=== PATIENT | female | born 1990 | race African-American/Black ===

== ENCOUNTER 2017-07-22 10:19 | Inpatient (IN) | payer MEDICAID, OTHER ==
[~2017-07-22] VITALS: Ht 162.6 cm; Wt 110.0 kg
[2017-07-22] MEDS ORDERED: DIVA500T2 PO (10:57)
[2017-07-22] MEDS ORDERED: RISP0.253 PO (10:57)
[2017-07-22 12:03] LABS: ALBUMIN 3.4 g/dL (3.4-5.0); ANION GAP 10 mmol/L (5-15); CALCIUM 7.9 mg/dL (8.5-10.1); CHLORIDE 105 mmol/L (98-107)
[2017-07-22 12:11] LABS: ACETAMINOPHEN < 2 mcg/mL (10-30); ALANINE AMINOTRANSFERASE 21 U/L (12-78); ALKALINE PHOSPHATASE 66 U/L (45-117); BILIRUBIN,TOTAL 0.3 mg/dL (0.2-1.0); CREATININE 0.73 mg/dL (0.55-1.02); SALICYLATE LEVEL 3.6 mg/dL (2.8-20.0); TOTAL PROTEIN 6.9 g/dL (6.4-8.2)
[2017-07-22] MEDS ORDERED: ZIPRASIDONE 20 MG INJ IM ONE ×2 (13:25→13:30)
[2017-07-22 14:28] LABS: AMPHETAMINE SCREEN, URINE Negative (Negative); BARBITURATE SCREEN, URINE Negative (Negative); BENZODIAZEPINE SCREEN, URINE Negative (Negative); CANNABINOID SCREEN, URINE Positive (Negative); COCAINE SCREEN, URINE Negative (Negative); METHADONE SCREEN, URINE Negative (Negative); OPIATE SCREEN, URINE Negative (Negative)
[2017-07-22 14:37] LABS: BASOPHILS # (AUTO) 0.04 x10^3/uL (0-0.1); BASOPHILS % (AUTO) 1 % (0-1); EOSINOPHILS % (AUTO) 2 % (1-7); LYMPHOCYTES # (AUTO) 2.16 x10^3/uL (1-3.4); LYMPHOCYTES % (AUTO) 36 % (22-44); MD MORPH REVIEW ONLY; MEAN CORPUSCULAR HEMOGLOBIN 26.3 pg (27.0-34.8); MEAN CORPUSCULAR HGB CONC 31.5 g/dL (32.4-35.8); MEAN CORPUSCULAR VOLUME 83.6 fL (80-100); MONOCYTES # (AUTO) 0.32 x10^3/uL (0.2-0.8); MONOCYTES % (AUTO) 5 % (2-9); NEUTROPHILS # (AUTO) 3.46 x10^3/uL (1.8-6.8); NEUTROPHILS % (AUTO) 57 % (42-75); RED BLOOD COUNT 5.18 x10^6/uL (3.82-5.3); RED CELL DISTRIBUTION WIDTH 15.8 % (9.6-15.2)
[2017-07-22 14:41] LABS: <PLATELET ESTIMATE> ADEQUATE; <PLT MORPHOLOGY> NORMAL PLT MORPH; <RBC MORPHOLOGY> NORMAL
[2017-07-22] MEDS ORDERED: ONDANSETRON ODT 4 MG PO PRN (15:30)
[2017-07-22] MEDS ORDERED: DOCUSATE 100 MG CAPSULE PO PRN (15:30)
[2017-07-22] MEDS: DIVALPROEX 500 MG TABLET.DR PO SCH ×2 (18:11→20:54)
[2017-07-22 20:01] LABS: MICROSCOPIC NOT IND
[2017-07-22 20:10] LABS: CULTURE INDICATED? NO
[2017-07-22] MEDS: RISPERIDONE 0.5 MG TABLET PO SCH (21:19)
[2017-07-22 21:58] VITALS: BP 138/94
[2017-07-23] MEDS: ZIPRASIDONE 20 MG INJ IM PRN ×2 (05:48→15:34)
[2017-07-23 05:51] LABS: CHLORIDE 106 mmol/L (98-107)
[2017-07-23 05:53] LABS: BASOPHILS # (AUTO) 0.03 x10^3/uL (0-0.1); BASOPHILS % (AUTO) 0 % (0-1); EOSINOPHILS # (AUTO) 0.09 x10^3/uL (0-0.4); EOSINOPHILS % (AUTO) 1 % (1-7); LYMPHOCYTES # (AUTO) 2.21 x10^3/uL (1-3.4); LYMPHOCYTES % (AUTO) 33 % (22-44); MD NO; MEAN CORPUSCULAR HGB CONC 33.2 g/dL (32.4-35.8); MEAN CORPUSCULAR VOLUME 84.3 fL (80-100); MEAN PLATELET VOLUME 10.2 fL (7.4-10.4); MONOCYTES # (AUTO) 0.35 x10^3/uL (0.2-0.8); MONOCYTES % (AUTO) 5 % (2-9); NEUTROPHILS # (AUTO) 4.11 x10^3/uL (1.8-6.8); NEUTROPHILS % (AUTO) 61 % (42-75); PLATELET COUNT 201 x10^3/uL (130-400); RED BLOOD COUNT 5.24 x10^6/uL (3.82-5.3); RED CELL DISTRIBUTION WIDTH 16.1 % (9.6-15.2)
[2017-07-23 06:15] LABS: ALANINE AMINOTRANSFERASE 18 U/L (12-78); ALBUMIN 3.3 g/dL (3.4-5.0); ALKALINE PHOSPHATASE 62 U/L (45-117); ANION GAP 7 mmol/L (5-15); BILIRUBIN,TOTAL 0.5 mg/dL (0.2-1.0); CALCIUM 9.1 mg/dL (8.5-10.1); FREE T4 (FREE THYROXINE) 1.08 ng/dL (0.76-1.46); TOTAL PROTEIN 7.5 g/dL (6.4-8.2)
[2017-07-23 08:39] VITALS: BP 140/97
[2017-07-23] MEDS: DIVALPROEX 500 MG TABLET.DR PO SCH ×3 (08:42→20:39)
[2017-07-23] MEDS: RISPERIDONE 0.5 MG TABLET PO SCH ×2 (08:42→20:39)
[2017-07-23] MEDS: HALOPERIDOL 1 MG TABLET PO PRN (08:42)
[2017-07-23 20:09] VITALS: BP 120/75
[2017-07-23] MEDS ORDERED: ZIPRASIDONE 20 MG INJ IM ONE (22:00)
[2017-07-24 02:50] VITALS: BP 143/99
[2017-07-24] MEDS ORDERED: LORazepam 1MG TABLET PO ONE (03:00)
[2017-07-24 08:03] VITALS: BP 130/89
[2017-07-24] MEDS: RISPERIDONE 0.5 MG TABLET PO SCH ×2 (08:34→20:52)
[2017-07-24] MEDS: HALOPERIDOL 1 MG TABLET PO PRN ×2 (08:34→14:12)
[2017-07-24] MEDS: DIVALPROEX 500 MG TABLET.DR PO SCH ×3 (08:35→20:51)
[2017-07-24 14:13] VITALS: BP 125/86
[2017-07-24] MEDS ORDERED: NICOTINE GUM 2 MG BC ONE (14:28)
[2017-07-24] MEDS: NICOTINE GUM 2 MG BC PRN ×2 (14:29→18:10)
[2017-07-24 20:35] VITALS: BP 139/95
[2017-07-24] MEDS ORDERED: TRAZODONE 100MG TABLET ONE (23:16)
[2017-07-24] MEDS ORDERED: TRAZODONE 100MG TABLET PO ONE (23:30)
[2017-07-25] MEDS: NICOTINE GUM 2 MG BC PRN ×2 (00:12→18:24)
[2017-07-25] MEDS: ZIPRASIDONE 20 MG INJ IM PRN ×2 (00:40→15:13)
[2017-07-25 05:20] VITALS: BP 126/89
[2017-07-25] MEDS ORDERED: ZIPRASIDONE 20MG CAPSULE PO ONE (05:30)
[2017-07-25] MEDS: ACETAMINOPHEN 325 MG TABLET PO PRN ×3 (05:54→17:36)
[2017-07-25 07:58] VITALS: BP 119/84
[2017-07-25] MEDS: DIVALPROEX 500 MG TABLET.DR PO SCH ×3 (09:27→20:57)
[2017-07-25] MEDS: RISPERIDONE 0.5 MG TABLET PO SCH ×2 (09:28→20:57)
[2017-07-25] MEDS ORDERED: SODIUM CHLORIDE NASAL SPRAY 45ML BOTTLE NAS PRN (10:00)
[2017-07-25] MEDS: CETIRIZINE 10 MG TABLET PO SCH (10:14)
[2017-07-25] MEDS: HALOPERIDOL 1 MG TABLET PO PRN (10:15)
[2017-07-25 19:30] VITALS: BP 115/82
[2017-07-25] MEDS ORDERED: HALOPERIDOL 5 MG TABLET ONE (19:37)
[2017-07-25] MEDS ORDERED: HALOPERIDOL 5 MG TABLET PO ONE ×2 (20:00→23:00)
[2017-07-25] MEDS ORDERED: TRAZODONE 150MG TABLET PO ONE (21:00)
[2017-07-26] MEDS ORDERED: ZIPRASIDONE 20 MG INJ IM ONE (07:30)
[2017-07-26 08:01] VITALS: BP 114/82
[2017-07-26] MEDS: RISPERIDONE 0.5 MG TABLET PO SCH (09:44)
[2017-07-26] MEDS: DIVALPROEX 500 MG TABLET.DR PO SCH ×3 (09:44→20:35)
[2017-07-26] MEDS: CETIRIZINE 10 MG TABLET PO SCH (09:44)
[2017-07-26] MEDS: ZIPRASIDONE 20 MG INJ IM PRN (12:17)
[2017-07-26] MEDS: NICOTINE GUM 2 MG BC PRN (18:23)
[2017-07-26 19:57] VITALS: BP 121/84
[2017-07-26] MEDS: RISPERIDONE 2 MG TABLET PO SCH (20:35)
[2017-07-27] MEDS: ZIPRASIDONE 20 MG INJ IM PRN ×3 (01:41→22:07)
[2017-07-27] MEDS: HALOPERIDOL 1 MG TABLET PO PRN (05:06)
[2017-07-27] MEDS ORDERED: HALOPERIDOL 5 MG TABLET ONE (07:22)
[2017-07-27] MEDS ORDERED: HALOPERIDOL 5 MG TABLET PO PRN ×2 (07:30→08:00)
[2017-07-27 08:00] VITALS: BP 102/62
[2017-07-27] MEDS: CETIRIZINE 10 MG TABLET PO SCH (08:43)
[2017-07-27] MEDS: DIVALPROEX 500 MG TABLET.DR PO SCH ×3 (08:43→20:02)
[2017-07-27] MEDS: NICOTINE GUM 2 MG BC PRN (15:45)
[2017-07-27] MEDS: CALCIUM CARBONATE 500 MG TAB.CHEW PO PRN ×2 (16:29→21:01)
[2017-07-27] MEDS: RISPERIDONE 2 MG TABLET PO SCH (20:02)
[2017-07-27 20:22] VITALS: BP 117/78
[2017-07-28 07:40] VITALS: BP 119/86
[2017-07-28] MEDS: NICOTINE GUM 2 MG BC PRN ×2 (09:19→21:44)
[2017-07-28] MEDS: CETIRIZINE 10 MG TABLET PO SCH (09:20)
[2017-07-28] MEDS: DIVALPROEX 500 MG TABLET.DR PO SCH (09:20)
[2017-07-28] MEDS ORDERED: BENZTROPINE 1 MG/ML, 2 ML IM PRN (13:00)
[2017-07-28] MEDS ORDERED: BENZTROPINE 1 MG TABLET PO PRN (13:00)
[2017-07-28] MEDS: CALCIUM CARBONATE 500 MG TAB.CHEW PO PRN ×2 (14:48→19:47)
[2017-07-28] MEDS: ZIPRASIDONE 20 MG INJ IM PRN ×2 (15:00→23:12)
[2017-07-28 19:57] VITALS: BP 149/104
[2017-07-28] MEDS ORDERED: DIVALPROEX 500 MG TAB.ER.24H PO SCH (21:00)
[2017-07-28] MEDS ORDERED: PALIPERIDONE 6 MG TAB.ER.24 PO SCH (21:00)
[2017-07-29] MEDS: NICOTINE GUM 2 MG BC PRN (05:25)
[2017-07-29 08:42] VITALS: BP 142/104
[2017-07-29] MEDS: CETIRIZINE 10 MG TABLET PO SCH (08:57)
[2017-07-29] MEDS ORDERED: DIVA500T4 PO (14:08)
[2017-07-29] MEDS ORDERED: CALC200T24 PO (14:08)
[2017-07-29] MEDS ORDERED: PALI6TAB5 PO (14:08)
[2017-07-29] MEDS ORDERED: BENZ1TAB61 PO (14:08)
== END 2017-07-29 14:33 | DRG 885 ==
LOC: ED 14:16 → EDIP 14:47 → OBSVTOIN 14:47 → 3E 21:55
PROVIDERS: ADMIT Hospitalist; ATTEND Hospitalist
DX: F23 Brief psychotic disorder (principal); E66.01 Morbid (severe) obesity due to excess calories; R45.851 Suicidal ideations; Z68.41 Body mass index [BMI] 40.0-44.9, adult; F12.20 Cannabis dependence, uncomplicated; F17.210 Nicotine dependence, cigarettes, uncomplicated; E66.9 Obesity, unspecified; F31.9 Bipolar disorder, unspecified; M25.562 Pain in left knee; F41.9 Anxiety disorder, unspecified; J30.2 Other seasonal allergic rhinitis; Z65.3 Problems related to other legal circumstances; Z79.899 Other long term (current) drug therapy; Z81.8 Family history of other mental and behavioral disorders; Z83.3 Family history of diabetes mellitus
CPT/HCPCS: 36415; 80053; 80164; 80307; 80329; 81003; 84439; 84443; 84703; 85025; 96372; J3486; G0378; G0480

== ENCOUNTER 2019-09-04 00:43 | Emergency (ER) | payer MEDICAID, OTHER ==
[~2019-09-04] VITALS: Ht 180.3 cm; Wt 125.0 kg
[~2019-09-04 00:43] MED LIST: BENZ1TAB61 PO; CALC200T24 PO; DIVA500T2 PO; DIVA500T4 PO; PALI6TAB5 PO; RISP0.253 PO
--- NOTE | 2019-09-04 01:08 | NUR ---
FACUNDO FROM OUTSIDE [facility], FOUND TALKING TO HERSELF STATING SI BY DRIVING HER CAR INTO A BODY OF WATER TO DROWN. PT REPORTS HX OF BIPOLAR AND PTSD, STATES SHE WANTS TO KILL HERSELF, HAS FLIGHT OF IDEAS.
[2019-09-04 01:25] LABS: BASOPHILS % (AUTO) 0 % (0-1); EOSINOPHILS # (AUTO) 0.06 x10^3/uL (0-0.4); EOSINOPHILS % (AUTO) 1 % (1-7); LYMPHOCYTES # (AUTO) 2.76 x10^3/uL (1-3.4); LYMPHOCYTES % (AUTO) 30 % (22-44); MD NO; MEAN CORPUSCULAR HEMOGLOBIN 28.3 pg (27.0-34.8); MEAN PLATELET VOLUME 9.2 fL (7.4-10.4); MONOCYTES # (AUTO) 0.17 x10^3/uL (0.2-0.8); MONOCYTES % (AUTO) 2 % (2-9); NEUTROPHILS # (AUTO) 6.29 x10^3/uL (1.8-6.8); NEUTROPHILS % (AUTO) 68 % (42-75); PLATELET COUNT 267 x10^3/uL (130-400); RED BLOOD COUNT 5.34 x10^6/uL (3.82-5.3); RED CELL DISTRIBUTION WIDTH 14.9 % (9.6-15.2)
[2019-09-04] MEDS ORDERED: ZIPRASIDONE 20 MG INJ IM ONE ×5 (01:29→23:56)
[2019-09-04] MEDS ORDERED: LORazepam 1MG TABLET PO ONE ×2 (01:30→11:00)
[2019-09-04] MEDS ORDERED: LORazepam 1MG TABLET ONE ×2 (01:30→10:54)
[2019-09-04 01:37] LABS: ALBUMIN 4.1 g/dL (3.4-5.0); ANION GAP 7 mmol/L (5-15); CHLORIDE 104 mmol/L (98-107); CREATININE 1.17 mg/dL (0.55-1.02); SALICYLATE LEVEL 6.1 mg/dL (2.8-20.0)
[2019-09-04 01:39] LABS: MICROSCOPIC INDICATED
[2019-09-04 01:40] LABS: AMPHETAMINE SCREEN, URINE Negative (Negative); BARBITURATE SCREEN, URINE Negative (Negative); BENZODIAZEPINE SCREEN, URINE Negative (Negative); CANNABINOID SCREEN, URINE Positive (Negative); COCAINE SCREEN, URINE Negative (Negative); METHADONE SCREEN, URINE Negative (Negative); OPIATE SCREEN, URINE Negative (Negative)
--- NOTE | 2019-09-04 02:20 | NUR ---
SLEEPING, EVEN AND UNLABORED RESPIRATIONS, SAFETY PRECAUTIONS IN ROOM IN PLACE. SITTER AT DOORWAY FOR SAFETY WATCH.
--- NOTE | 2019-09-04 03:35 | NUR ---
PT SLEEPING ON GURNEY, EVEN AND UNLABORED RESPIRATIONS. SITTER AT DOOR.
--- NOTE | 2019-09-04 05:34 | NUR ---
PT AWAKE AGITATED AND YELLING IN ROOM, REFERRING TO HERSELF IN THIRD PERSON. SITTER AT DOORWAY FOR SAFETY MONITORING.
--- NOTE | 2019-09-04 06:51 | NUR ---
REPORT GIVEN TO LUCIEN ESCOBAR.
--- NOTE | 2019-09-04 06:51 | NUR ---
report received from turner guillaume.
--- NOTE | 2019-09-04 08:02 | NUR ---
diet tray provided at this time.
--- NOTE | 2019-09-04 08:46 | NUR ---
PT YELLING IN ROOM, REFERRING TO HERSELF IN THIRD PERSON. SITTER MONITORING FROM HALLWAY FOR SAFETY. ROOM REMAINS SECURE.
--- NOTE | 2019-09-04 08:55 | NUR ---
REPORT FROM LUCIEN ESCOBAR.
--- NOTE | 2019-09-04 09:01 | NUR ---
report given to magdaleno guillaume.
--- NOTE | 2019-09-04 09:20 | NUR ---
PT RESTING IN BED. DENIES SI AT MOMENT. ASKING FOR PHONE, EDUCATED. GIVEN WATER. STS HEARS VOICES WHEN SHE IS NOT TALKING. DENEIS COMMAND AH. DENIES VH/HI. PT SEXUALLY INAPPROPRIATE WHEN ORAL TEMPERATURE TAKEN. DENIES PHYSICAL COMPLAINTS. PHYSICAL ASSESSMENT WNL. VSS. SITTER IN PLACE. AWAITING WHISKEY PROOF READER.
--- NOTE | 2019-09-04 11:02 | NUR ---
pt getting agitated. 2 mg ativan po. given tv remote. sheets changed. given panties and pad, on period. sitter in place. as
--- NOTE | 2019-09-04 11:16 | NUR ---
rubens research neuropsychologist at bedside for eval. as
[2019-09-04] MEDS: ARIPIPRAZOLE 10 MG TABLET PO SCH (11:30)
[2019-09-04] MEDS ORDERED: TRAZODONE 50MG TABLET PO PRN (11:30)
--- NOTE | 2019-09-04 11:45 | NUR ---
pt given lunch and meds. drowsy. cooperative. as
[2019-09-04] MEDS ORDERED: ARIPIPRAZOLE 10 MG TABLET ONE (11:51)
--- NOTE | 2019-09-04 12:00 | NUR ---
PACKET FAXED TO [facility]
--- NOTE | 2019-09-04 12:52 | NUR ---
resting in care of sitter safety maintained. as
[2019-09-04] MEDS ORDERED: ONDANSETRON ODT 4 MG ONE (13:48)
--- NOTE | 2019-09-04 13:56 | NUR ---
pt dry heaving, to bathroom, no vomiting. zofran odt 4 mg per verbal order dr florian. pt asking for soda, told to wait for meds. intermittently crying loudly then laughing then watching tv calmly. as
[2019-09-04] MEDS ORDERED: ONDANSETRON ODT 4 MG PO ONE (15:00)
--- NOTE | 2019-09-04 15:00 | NUR ---
pt resting in care of sitter nad. as
--- NOTE | 2019-09-04 16:00 | NUR ---
pt resting in care of sitter nad. as
--- NOTE | 2019-09-04 16:50 | NUR ---
pt resting in care of sitter nad. as
[2019-09-04] MEDS ORDERED: hydrOXyzine 50MG TABLET ONE ×2 (17:17→23:16)
[2019-09-04] MEDS: HYDROXYZINE PAMOATE 50MG CAP PO PRN ×2 (17:22→23:19)
--- NOTE | 2019-09-04 17:23 | NUR ---
MEDS PER MAR FOR AGITATION. SITTER IN PLACE.
--- NOTE | 2019-09-04 18:47 | NUR ---
OOB TO BATHROOM GAIT STEADY. GIVEN NEW PAD/UNDERWEAR.
--- NOTE | 2019-09-04 19:00 | NUR ---
TASK RN: PT SITTING UP ON GURNEY WATCHING TV. ROOM SAFETY PRECAUTIONS IN PLACE. SITTER AT DOOR FOR SAFETY WATCH.
--- NOTE | 2019-09-04 19:52 | NUR ---
pt in bathroom for shower, cooperative. as
[2019-09-04] MEDS ORDERED: TRAZODONE 50MG TABLET ONE (19:54)
--- NOTE | 2019-09-04 20:55 | NUR ---
pt in bed sleeping. sitter in place. report to turner guillaume. as
--- NOTE | 2019-09-04 20:59 | NUR ---
REPORT FROM CLAUDIA ESCOBAR.
[2019-09-04] MEDS ORDERED: HYDROXYZINE PAMOATE 50MG CAP ONE (23:17)
--- NOTE | 2019-09-05 00:02 | NUR ---
PT MEDICATED PER MAR.
--- NOTE | 2019-09-05 01:28 | NUR ---
SLEEPING ON GURNEY, EVEN AND UNLABORED RESPIRATIONS, SITTER AT DOOR FOR SAFETY WATCH.
--- NOTE | 2019-09-05 02:15 | NUR ---
PT BECAME INCREASINGLY AGITATED ATTEMPTING TO REMOVE IV POLE FROM [facility] [place]. SECURITY CALLED AND PLACED PT ON 4 POINT RESTRAINTS.
--- NOTE | 2019-09-05 03:00 | NUR ---
PT AGREES TO COOPERATE, RESTRAINTS REMOVED.
--- NOTE | 2019-09-05 03:25 | NUR ---
SITTER AT DOOR FOR SAFETY WATCH, NAD NOTED ON PT, SAFETY ROOM PRECAUTIONS IN PLACE.
--- NOTE | 2019-09-05 04:51 | NUR ---
PT UP TO BATHROOM. SITTER MONITORING FOR SAFETY.
[2019-09-05] MEDS ORDERED: HYDROXYZINE PAMOATE 50MG CAP ONE (06:23)
[2019-09-05] MEDS: HYDROXYZINE PAMOATE 50MG CAP PO PRN ×2 (06:27→20:27)
--- NOTE | 2019-09-05 06:28 | NUR ---
PT AT DOOR WAY, MEDICATED PER MAY. SITTER AT ROOM ENTRANCE FOR SAFETY WATCH.
--- NOTE | 2019-09-05 06:45 | NUR ---
REPORT GIVEN TO JOSUÉ ESCOBAR.
[2019-09-05] MEDS ORDERED: ARIPIPRAZOLE 10 MG TABLET ONE ×2 (08:21→11:10)
[2019-09-05] MEDS ORDERED: ZIPRASIDONE 20 MG INJ IM ONE ×3 (08:22→09:00)
[2019-09-05] MEDS: ARIPIPRAZOLE 10 MG TABLET PO SCH ×2 (08:32→11:09)
--- NOTE | 2019-09-05 11:04 | NUR ---
INFORMED BY PETS SALESPERSON THAT PT IS EXITING RM MULTIPLE TIMES AND BEING VERBALLY ABUSIVE TO STAFF AND NOT FOLLOWING DIRECTIONS. SECURITY WAS CALLED FOR STANDBY. PROVIDER INFORMED OF PT'S BEHAVIOR.
[2019-09-05] MEDS ORDERED: TRAZODONE 100MG TABLET PO PRN (13:00)
[2019-09-05] MEDS ORDERED: LORazepam 1MG TABLET ONE (13:17)
[2019-09-05] MEDS ORDERED: MAALOX/HYOSCYAMINE/LIDOCAINE 45 ML BTL ONE (20:21)
[2019-09-05] MEDS ORDERED: TRAZODONE 100MG TABLET ONE (20:26)
[2019-09-05] MEDS ORDERED: hydrOXyzine 50MG TABLET ONE (20:26)
[2019-09-05] MEDS ORDERED: MAALOX/HYOSCYAMINE/LIDOCAINE 45 ML BTL PO ONE (20:30)
--- NOTE | 2019-09-05 21:04 | NUR ---
REPORT RECIEVED FROM LUZ FUNG. PT LAYING IN BED, LIGHTS OFF TO PROMOTE REST, RESPIRATIONS EVEN AND UNLABORED. SAFETY PRECAUTIONS IN PLACE, SITTER OUTSIDE ROOM.
[2019-09-05] MEDS ORDERED: ONDANSETRON ODT 4 MG ONE (21:39)
--- NOTE | 2019-09-05 21:48 | NUR ---
PT DRY HEAVING IN BATHROOM, COMPLAINING OF PAIN. STATES SHE NORMALLY SMOKES MARIJUANA ONCE A DAY. MEDICATED TO MAR, GIVEN VOMIT BAG. PT STATES SHE ALREADY FEELS RELIEF.
[2019-09-05] MEDS ORDERED: ONDANSETRON ODT 4 MG PO ONE (22:00)
--- NOTE | 2019-09-05 22:16 | NUR ---
PT AMBULATORY IN [place], STATING SHE'S BORED, PT EASILY REDIRECTABLE TO ROOM. PT STATES SHE WANTS TO VENT TO HER FRIENDS BUT HER PHONE WAS TAKEN. PT STATED "IT'S ALMOST OVER, I'LL GET THROUGH IT, I'M RESILIANT." PT REMAINS IN VIEW OF THE SITTER, WHEN THIS RN INQUIRED ABOUT HOW SHE WAS DOING, PT STATED SHE WAS OKAY CURRENTLY, ALL NEEDS MET AT THIS TIME.
--- NOTE | 2019-09-06 00:05 | NUR ---
PT REQUESTS RN. PT SITTING OUT IN THE [place]. THIS RN COMES TO TALK TO PT. PT STATES "I NEED TO MOVE THE F ON." PT EDUCATED THAT SHE'S NOT ALLOWED TO LEAVE BECAUSE SHE IS A DANGER TO HERSELF. PT STATES "I'M NOT A DANGER TO MYSELF, I'M A DANGER TO MY MIND." BEGINS MAKING STATEMENTS THAT THIS RN IS PROJECTING ON HER, THAT THIS RN DOESN'T KNOW HER, THAT SHE PRAYS TO THE LORD AND AGAINST THE DEVIL. PT WAS TOLD SHE WOULD BE GIVEN SPACE, BUT THAT SHE NEEDED TO GET BACK TO HER ROOM. PT STATED "GET SOMEONE AGGRESSIVE TO GET ME BACK IN MY ROOM." RN EDUCATED PT THAT IF NECESSARY, SECURITY WOULD BE CALLED. THIS RN WALKED AWAY TO ASK MALE TECH WHO WITNESSED EVENT TO TELL PT TO GET BACK TO ROOM. PT WENT BACK TO ROOM WITHOUT FUTHER INTERVENTION.
[2019-09-06] MEDS ORDERED: LORazepam 1MG TABLET ONE (00:11)
--- NOTE | 2019-09-06 00:50 | NUR ---
PT SHOWERING WITH TECH TO BE SITTER.
[2019-09-06 04:31] VITALS: BP 143/99
--- NOTE | 2019-09-06 04:35 | NUR ---
PT PROVIDED WITH HOSPITAL BED. PT PREVIOUSLY INQUIRED ABOUT HOW LONG SHE'S BEEN HERE, QUESTIONING THAT HER LEGAL HOLD TIME WAS UP. PT EDUCATED THAT IT'S 72 HOURS, NOT JUST 3 DAYS AND PT WAS AGREEABLE TO THIS INFORMATION AND WENT BACK TO BED.
--- NOTE | 2019-09-06 04:41 | NUR ---
PT AMBULATORY TO BATHROOM, STEADY GAIT.
--- NOTE | 2019-09-06 05:19 | NUR ---
PT SINGING AND TALKING TO SELF, LAUGHING INTERMITTENTLY.
--- NOTE | 2019-09-06 06:45 | NUR ---
PT WALKING OUT IN THE HALLWAY IN FRONT OF HER ROOM, ON THE VERGE OF TEARS. "I'M JUST TRYING TO DISTRACT MYSELF BECAUSE I'M GOING TO [place] AND I NEED SOME WATER BUT YOU WORK SO HARD AND I JUST WISH I WAS QUALIFIED TO EVEN DO SOMETHING LIKE THIS." PT GIVEN WATER. ALL NEEDS MET AT THIS TIME.
--- NOTE | 2019-09-06 07:00 | NUR ---
REPORT GIVEN TO LUZ HADDAD; TO ASSUME FULL CARE.
[2019-09-06] MEDS ORDERED: ARIPIPRAZOLE 5 MG TABLET PO SCH (09:00)
--- NOTE | 2019-09-06 12:14 | NUR ---
LH RELEASED. PT TO DC, PT GIVEN ALL BELONGINGS. PT VERIFIED ALL BELONGINGS RETURNED. PT PROVIDED WITH TAXI VOUCHER
== END 2019-09-06 12:16 | disposition home or self-care (01) ==
LOC: ED 01:45
DX: F30.2 Manic episode, severe with psychotic symptoms (principal); F17.200 Nicotine dependence, unspecified, uncomplicated
CPT/HCPCS: 36415; 80048; 80307; 81001; 82040; 84703; 85025; 99284; J3486; Q0162

== ENCOUNTER 2019-12-29 15:01 | Emergency (ER) | payer SELFPAY ==
[~2019-12-29] VITALS: Ht 165.1 cm; Wt 114.0 kg
--- NOTE | 2019-12-29 15:10 | NUR ---
IGNACIO RN: NOT IN LOBBY
[2019-12-29] MEDS ORDERED: LIDOCAINE 1%-EPI 1:100K, 20ML SQ ONE (15:30)
[2019-12-29] MEDS ORDERED: SODIUM CHLORIDE FLUSH 10ML SYR IVF ONE (15:30)
--- NOTE | 2019-12-29 16:11 | NUR ---
FIBERGLASS LUGGAGE MOLDER: PT TO ROOM FROM LOBBY
[2019-12-29] MEDS ORDERED: HYDROcodone/APAP 5/325 TABLET PO ONE (18:00)
[2019-12-29 18:06] VITALS: BP 125/64
== END 2019-12-29 18:08 | disposition home or self-care (01) ==
LOC: ED 16:41
DX: L02.213 Cutaneous abscess of chest wall (principal); F17.210 Nicotine dependence, cigarettes, uncomplicated
CPT/HCPCS: 10060; 99284; 99406